=== PATIENT | female | born 1945 | race African-American/Black ===

== ENCOUNTER → 2016-05-13 | Outpatient (CLI) | payer MEDICARE, OTHER ==
[~2016-05-13] MED LIST: ASCO500T3 PO; ASPI-482 PO; BUPR100T6 PO; CARV25TA2 PO; CETI10CA PO; CHOL500015 PO; CYAN500T17 PO; DARB25DI SQ; FOLI1TAB16 PO; FURO-68 PO; HYDR-2679 PO; INSU100I13 SQ; LEVO125T PO; LIRA0.6P2 SQ; LORA-434 PO; MAGN400C PO; MECL12.52 PO; MULT-245 PO; OLME1TAB35 PO; OMEG10005 PO; PANT40TA3 PO; PENT400T2 PO; POTA10TA10 PO; TRAM50TA PO
--- NOTE | 2016-05-13 13:20 | RAD ---
PROCEDURE Lumbar spine MRI without contrast. HISTORY Back pain and lower extremity radiculopathy. TECHNIQUE Multiplanar and multi sequence magnetic resonance imaging of the lumbar spine was performed without contrast. The patient was unable to tolerate the entire exam due to discomfort. COMPARISON 07/11/2015 FINDINGS The exam is slightly limited due to motion and the absence of axial T1 weighted images. There is mild levoscoliosis. There is minimal retrolisthesis of L2 on L3. The vertebral bodies are normal in height. There is endplate remodeling and disc desiccation at all levels. There are few small endplate Schmorl's nodes. No suspicious osseous lesion is seen. The conus terminates at L1. At L1-L2, there is mild facet arthropathy. There is hypertrophy of the ligamentum flavum. There is no stenosis. At L2-L3, there is a disc bulge and endplate remodeling. There is mild facet arthropathy. There is hypertrophy of the ligamentum flavum. There is no stenosis. At L3-L4, there are bilateral paracentral to extra foraminal disc protrusions superimposed on a disc bulge and endplate remodeling. There is mild facet arthropathy. There is hypertrophy of the ligamentum flavum. There is mild right and minimal left foraminal stenosis. There is mild central canal stenosis. At L4-L5, there is a broad-based posterior disc protrusion and annular tear with slight superior and inferior extrusion. There is also a right extra foraminal to lateral disc protrusion. These are superimposed on a disc bulge and endplate remodeling. There is moderate facet arthropathy. There is hypertrophy of the ligamentum flavum. There is mild to moderate right foraminal stenosis. There is moderate central canal stenosis. At L5-S1, there is a broad-based posterior central to right paracentral disc protrusion with slight inferior extrusion and there is a left paracentral to extra foraminal disc protrusion with slight superior extrusion. This is superimposed on a disc bulge and endplate remodeling. There is mild left greater than right facet arthropathy. There is moderate left foraminal stenosis. This results in effacement of the exiting left L5 nerve root. IMPRESSION 1. Multilevel degenerative change within the lumbar spine, described in detail above. This results in mild right and minimal left foraminal and mild central canal stenosis at L3-L4, mild to moderate right foraminal and moderate central canal stenosis at L4-L5, and moderate left foraminal stenosis at L5-S1. This is similar compared to the prior study. 2. Mild scoliosis. Electronically signed by: Ashley Fox (May 13, 2016 13:17:54)
== END | disposition home or self-care (01) ==
LOC: MRI 11:46
PROVIDERS: ATTEND Neurological Surgery
DX: M48.06 Spinal stenosis, lumbar region (principal); M41.9 Scoliosis, unspecified
CPT/HCPCS: 72148

== ENCOUNTER → 2016-06-03 | Outpatient (CLI) | payer MEDICARE, OTHER ==
[~2016-06-03] MED LIST changes: +LEVO100T5 PO; +LOSA100T6 PO; +RANI150C PO
[2016-06-03 15:41] LABS: BASO % 1 % (0-3); EOS % 10 % (0-3); HEMOGLOBIN 12.4 g/dL (12.0-15.5); LYMPH % 21 % (24-48); MEAN CORPUSCULAR HEMOGLOBIN 29 pg (25-35); MEAN CORPUSCULAR HGB CONC 34 g/dL (31-37); MEAN CORPUSCULAR VOLUME 86 fL (79-100); MONO % 10 % (0-9); NEUT % 59 % (31-73); PLATELET COUNT 250 x10^3/uL (140-400); RED BLOOD COUNT 4.31 x10^6/uL (3.50-5.40); RED CELL DISTRIBUTION WIDTH 15.9 % (11.5-14.5); WHITE BLOOD COUNT 4.9 x10^3/uL (4.0-11.0)
[2016-06-03 15:49] LABS: ALBUMIN 2.9 g/dL (3.4-5.0); ALBUMIN/GLOBULIN RATIO 0.7 (1.0-1.7); CALCIUM 8.9 mg/dL (8.5-10.1); CREATININE 1.6 mg/dL (0.6-1.0); GFR 38.6; POTASSIUM 3.9 mmol/L (3.5-5.1); TOTAL BILIRUBIN 0.3 mg/dL (0.2-1.0); TOTAL PROTEIN 7.3 g/dL (6.4-8.2)
[2016-06-03 15:50] LABS: INR 1.1 (0.8-1.1); PROTHROMBIN TIME PATIENT 13.7 SEC (11.7-14.0)
== END | disposition home or self-care (01) ==
LOC: SURGPAT 14:36
PROVIDERS: ATTEND Neurological Surgery
DX: M54.16 Radiculopathy, lumbar region (principal)
CPT/HCPCS: 36415; 80053; 83036; 85027; 85610; 85730; 87641

== ENCOUNTER → 2016-11-06 | Outpatient (CLI) | payer MEDICARE, OTHER ==
[2016-06-12 11:00] VITALS: BP 133/71
[~2016-11-06] MED LIST changes: +BUPIVACAINE MPF 0.25% 10 ML VIAL. ONE; -CHOL500015 PO; +CHOL500045 PO; +IOHEXOL 180 MG/ML 10 ML VIAL. ONE; -POTA10TA10 PO; +POTA10TA12 PO; +methylPREDNISolone ACETATE 40 MG/ML VIAL. ONE; +methylPREDNISolone ACETATE 80 MG/ML VIAL. ONE
--- NOTE | 2016-11-06 23:41 | PAIN ---
DATE OF SERVICE: 11/06/2016 DIAGNOSES: Acute herpes zoster, right lower flank and lower extremity. HISTORY OF PRESENT ILLNESS: Ms. Santos is a 71-year-old female who returns for followup, and is well known to our office, as she was here approximately 1 year ago for treatment of lumbar radicular and sciatic pain on the right side. The patient reports now that she was doing quite well after the injections that she received last year at our office, but has had acute shingles outbreak in the low back, right hip and right lower extremity. It has been about 2 weeks since the outbreak. The patient was treated with Valtrex and gabapentin. Valtrex is now completed. She did take a 10-day series of this, and reports she was feeling fairly well, but the pain began to return over the past several days in the right leg. She has been started on gabapentin at 300 mg 3 times daily. Also, taking Lortab for the pain, which she reports does help about 75%. The patient reports no loss of motor function, but still significant pain with significant blistering on the right lower extremity, in an L4 and L5 dermatomal pattern, covering the entire hip, leg, thigh, and most of the lower leg in the medial aspect to the ankle. The patient rates the pain as a 7 on a scale of 10 at it its worst, 2 at its least, currently a 7 on a scale 10 today. Reports an aching, sharp, shooting, stabbing, burning, constant unbearable pain. Worse with weightbearing. Was also having some blisters that are popping and leaking on her right posterior gluteus and hip. PAST MEDICAL HISTORY: Significant for hearing loss in the right ear, cataracts, shortness of breath with exertion, anemia, gastroesophageal reflux, arthritis, hypertension. PREVIOUS SURGERY: Include a knee replacement, cataract extractions, thyroidectomy, hysterectomy and recent lumbar laminectomy with diskectomy in June of this year. CURRENT MEDICATIONS: Reviewed and are well documented on the patient's chart. ALLERGIES: THE PATIENT IS ALLERGIC TO ADALAT. FAMILY HISTORY: Significant for hypertension. SOCIAL HISTORY: The patient does not smoke, does not drink alcohol. She lives in [place], [place]. Is , and has 2 children living with her currently as well. REVIEW OF SYSTEMS: The patient's review of systems is positive for those items mentioned in history of present illness. All systems reviewed and otherwise negative. It is complete and well-documented on the patient's chart. PHYSICAL EXAMINATION: VITAL SIGNS: Today, patient's blood pressure is 152/82, pulse 70, respirations are 18, temperature is 98.1 degrees Fahrenheit. Height is 5 feet, weight is 176 pounds. GENERAL: The patient is awake, alert, oriented, appropriate, has very pleasant demeanor. HEENT: The patient is wearing eyeglasses. Normocephalic, atraumatic. Extraocular movements are intact and symmetrical. Oral cavity, mucous membranes are moist and pink. Dentition is intact. NECK: Shows anterior throat supple, without palpable lymphadenopathy noted. Swallow reflex is symmetrical. Neck shows full rotational motion of the cervical spine without difficulty or tenderness. CHEST: Shows normal on inspection. Breath sounds are clear to auscultation bilaterally. HEART: Shows S1 and S2 clear. No murmurs auscultated. ABDOMEN: Obese, soft, nontender, nondistended. No palpable organomegaly is noted. No rebound or guarding demonstrated. MUSCULOSKELETAL: Back shows spine grossly midline. Normal appearing thoracic kyphosis, mild flattening of the lumbar lordotic curvature. Well-healed surgical scar is noted. Multiple areas of lesions of blisters in various stages of healing are present over the right posterior gluteus, right lateral thigh, medial thigh, posterior thigh, mostly in the anterior aspect of the thigh and to the medial lower leg into the ankle, as well as some on the posterior calf, but more sparse. The patient has significant allodynia on the area of the thigh, especially medial thigh and the medial lower leg, again with blisters present throughout. No findings are on the left lower extremity. Deep tendon reflexes in the lower extremities show 1+ in the patellar and tendo calcaneus tendons. Motor exam is strong with dorsiflexion and extension, rated at 5/5 and equal, as is quadriceps and hamstring flexion. Peripheral pulses are 1+ posterior tibial and dorsalis pedis pulses. No peripheral edema is noted bilaterally. Options were discussed with the patient. The patient's old chart was reviewed, as her current medication regimen updated. Current review of systems updated as noted. We will proceed with a caudal approach of epidural steroid injection today with fluoroscopic guidance. Risks were discussed, including but not limited to bleeding, infection, possibility of epidural hematoma, subsequent neurologic compromise, dural puncture, headaches, spinal cord and/or nerve damage, side effects of steroid medication and poor results regarding pain control. The patient understands and wishes to proceed. The patient will return to clinic in approximately 2 weeks for followup; was counseled as to return appointment, activity level and side effects to be aware of. DIAGNOSIS: Acute herpes zoster outbreak, right L4 and L5 dermatome. PROCEDURE: Lumbar epidural steroid injection with caudal approach, using C-arm fluoroscopic guidance under sterile prep and drape using local anesthetic. MEDICATION INJECTED: A total of 120 mg Depo-Medrol plus total of 4 mL of 0.125 bupivacaine with normal saline and 2 mL Isovue for contrast. CONDITION AT DISCHARGE: Stable. The patient tolerated procedure well, had no complications. LYDIA GORE MD DR: LIONEL/channing JOB#: [id number] / [id number] MAGDA Suarez
== END | disposition home or self-care (01) ==
LOC: PNCL 14:18
PROVIDERS: ATTEND Anesthesiology
DX: B02.9 Zoster without complications (principal); H91.91 Unspecified hearing loss, right ear; K21.9 Gastro-esophageal reflux disease without esophagitis; M19.91 Primary osteoarthritis, unspecified site; I10 Essential (primary) hypertension; Z90.710 Acquired absence of both cervix and uterus; Z82.49 Family history of ischemic heart disease and other diseases of the circulatory system
CPT/HCPCS: 62323; J1030; J1040; J3490

== ENCOUNTER → 2017-02-06 | Outpatient (CLI) | payer MEDICARE, OTHER ==
[2016-06-12 11:00] VITALS: BP 133/71
[~2017-02-06] MED LIST changes: -BUPIVACAINE MPF 0.25% 10 ML VIAL. ONE
--- NOTE | 2017-02-06 20:14 | PAIN ---
DATE OF SERVICE: 02/06/2017 DIAGNOSES: 1. Lumbar radiculopathy with lumbar degenerative disk disease, post-lumbar laminectomy syndrome. 2. Postherpetic neuralgia in the right L4-L5 dermatomal distribution. HISTORY OF PRESENT ILLNESS: The patient is a 71-year-old female who returns for followup, status post caudal epidural steroid injection, last seen on 11/06/2016. The patient did very well with this initially with approximately 75% improvement, is starting to return now. She is having some increased pain in the right leg and low back as it was previously not quite to that extent, not to baseline, but still significant radiation to posterior gluteus, posterolateral thigh, lateral anterior thigh, lateral medial thigh and medial lower leg; sharp, shooting, tingling and burning, becoming more unbearable, on and off, but is becoming more constant over the past month or so. The patient reports her pain as a 9 on a scale of 10 at its worst, 8 on average, and 8 at its least and is a 8 today. The patient reports no new motor or sensory deficits, no new bowel or bladder incontinence. Pain is worse with walking, standing, changing positions, especially from standing to sitting and vice versa. When she is sitting, the pain is much better. It is better with lying down as well. Has no difficulty sleeping, sleeps about 8 hours a night as pain does not awaken her from sleep. The patient reports no new motor or sensory deficits, no new bowel or bladder incontinence, no recent injuries or accidents. PHYSICAL EXAMINATION: VITAL SIGNS: Today, the patient's blood pressure 162/81, pulse 74, respirations 18, temperature is 97.9 degrees Fahrenheit. Height is 5 feet 0 inches, weight is 176 pounds. GENERAL: The patient is awake, alert, oriented, appropriate, very pleasant demeanor. HEENT: Head shows normocephalic, atraumatic. Extraocular movements are intact, symmetrical. Oral cavity: Mucous membranes are moist and pink. Dentition is intact. NECK: Shows anterior throat supple without palpable lymphadenopathy noted. Swallow reflex is symmetrical. CHEST: Shows normal on inspection. Breath sounds are clear to auscultation bilaterally. HEART: Shows S1, S2 clear. No murmurs auscultated. ABDOMEN: Soft, nontender, nondistended. No palpable organomegaly. There is no rebound or guarding demonstrated. MUSCULOSKELETAL: Back shows spine grossly in the midline. Well healed surgical scars noted in the lumbar distribution. Lumbar paraspinous muscle shows symmetrical with inspection, on palpation shows some moderate tenderness bilaterally without radiation, without atrophy or hypertrophy. The patient has good rotational motion of lumbar spine, both laterally as well as extension and flexion. Inspection of the patient's skin shows some significant residual pigmentation from herpes, shingles, rash on the right side in the L4 and L5 dermatome, radiating into the right gluteus as well as into the anterior lateral thigh, lateral medial at area of the right thigh and some minor rashes in the medial calf on the right side as well. The patient's lower extremities show deep tendon reflexes 1+ in the patellar and tendo calcaneus tendons. Motor exam is strong with 5/5 dorsiflexion and extension and equal. Peripheral pulses are 1+ posterior tibial. No peripheral edema is noted bilaterally. Options were discussed with the patient. The patient's old chart was reviewed as her current medication regimen updated. Current review of systems updated today as well. We will proceed with a caudal approach epidural steroid injection today with fluoroscopic guidance. Risks were again discussed including, but not limited to bleeding, infection, possibility of epidural hematoma and subsequent neurologic compromise, dural puncture, headaches, spinal cord and/or nerve damage, side effects of steroid medication and poor results regarding pain control. The patient understands and wished to proceed. The patient will return to clinic in approximately 2 weeks for followup, was counseled as to return appointment, activity level and side effects to be aware of. DIAGNOSES 1. Lumbar radiculopathy with lumbar degenerative disk disease, post-lumbar laminectomy syndrome. 2. Postherpetic neuralgia, right L4-L5 dermatome. PROCEDURE: Caudal approach epidural steroid injection using C-arm fluoroscopic guidance under sterile prep and drape using local anesthetic. MEDICATION INJECTED: A total of 120 mg Depo-Medrol plus 10 mL preservative-free normal saline and 2 mL of Isovue for contrast. CONDITION AT DISCHARGE: Stable. The patient tolerated the procedure well, had no complications. LYDIA GORE MD DR: LIONEL/channing JOB#: [id number] / [id number]
== END | disposition home or self-care (01) ==
LOC: PNCL 10:47
PROVIDERS: ATTEND Anesthesiology
DX: M51.16 Intervertebral disc disorders with radiculopathy, lumbar region (principal); M96.1 Postlaminectomy syndrome, not elsewhere classified; B02.29 Other postherpetic nervous system involvement; I50.9 Heart failure, unspecified; I10 Essential (primary) hypertension; G47.30 Sleep apnea, unspecified; K21.9 Gastro-esophageal reflux disease without esophagitis; Z90.710 Acquired absence of both cervix and uterus; M19.90 Unspecified osteoarthritis, unspecified site; E11.9 Type 2 diabetes mellitus without complications; E03.9 Hypothyroidism, unspecified; Z83.3 Family history of diabetes mellitus; Z88.8 Allergy status to other drugs, medicaments and biological substances
CPT/HCPCS: 62323; J1030; J1040